=== PATIENT | female | born 1970 | race Caucasian/White ===

== ENCOUNTER 2019-11-05 10:47 | Observation (INO) ==
[2019-11-05] MEDS ORDERED: Ondansetron 4 MG/2 ML VIAL IVP PRN (12:34)
[2019-11-05] MEDS ORDERED: *HR* Dextrose 50 % in Water (Syg) 50 ML SYRINGE IVP PRN (13:35)
[2019-11-05] MEDS ORDERED: Dextrose Gel 15 GM/37.5 ML TUBE PO PRN ×2 (13:35)
[2019-11-05] MEDS ORDERED: D5% in Water 1,000 ML IVC PRN (13:35)
[2019-11-05] MEDS ORDERED: amLODIPine 5 MG TABLET PO SCH (13:45)
[2019-11-05 14:54] LABS: Thyroid Stimulating Hormone 1.553 mcIU/mL (0.340-5.600)
[2019-11-05] MEDS: Insulin LISPRO 300 UNITS/3 ML VIAL SQ SCH (16:21)
[2019-11-05] MEDS: Acetaminophen 325 MG TABLET PO PRN (17:53)
[2019-11-05] MEDS ORDERED: Perflutren Lipid Microsphere 1.3 ML in 0.9 % Sodium Chloride 8.7 ML IVP ONE (18:50)
[2019-11-05] MEDS ORDERED: Ketorolac 15 MG/ML VIAL IVP ONE (20:38)
[2019-11-06 03:48] LABS: Hematocrit 40.2 % (35.3-44.9); Hemoglobin 12.3 g/dL (11.5-15.4); Mean Corpuscular HGB Conc 30.6 g/dL (31.6-35.5); Mean Corpuscular Hemoglobin 26.9 pg (28.0-33.3); Mean Platelet Volume 10.3 fL (9.4-12.4); Platelet Count 210 K/mcL (140-400); Red Blood Count 4.57 M/mcL (3.82-4.97); Red Cell Distribution Width 13.6 % (11.5-14.5); White Blood Count 6.4 K/mcL (4.3-11.1)
[2019-11-06 04:07] LABS: BUN/Creatinine Ratio 16 (6-26); Blood Urea Nitrogen 10 mg/dL (6-20); Calcium 8.3 mg/dL (8.6-10.3); Carbon Dioxide 27 mEq/L (23-29); Chloride 104 mEq/L (98-107); Chol/HDL Ratio 5.6 (0-4.9); Cholesterol 152 mg/dL (< 200); Glucose 134 mg/dL (70-105); HDL Cholesterol 27 mg/dL (40-59); LDL Cholesterol,Calculated 93 mg/dL (0-99); Osmolality,Calculated 287 (280-300); Phosphorous 4.2 mg/dL (2.7-4.5); Potassium 3.7 mEq/L (3.5-5.1); Sodium 138 mEq/L (136-145); Triglycerides 159 mg/dL (< 150); Troponin I < 0.03 ng/mL (< 0.04); eGFR For African Americans > 60 (> 60); eGFR For Non-African Americans > 60 (> 60)
[2019-11-06] MEDS ORDERED: Regadenoson 0.4 MG/5 ML SYRINGE IVP ONE (06:42)
[2019-11-06] MEDS: Insulin LISPRO 300 UNITS/3 ML VIAL SQ SCH ×2 (08:30→11:22)
[2019-11-06] MEDS ORDERED: amLODIPine 5 MG TABLET PO SCH (09:00)
[2019-11-06] MEDS ORDERED: Levothyroxine 25 MCG TABLET PO SCH (09:00)
[2019-11-06] MEDS ORDERED: Aspirin 81 MG TAB.CHEW PO SCH (09:00)
[2019-11-06 09:39] LABS: Estimated Average Glucose 140 mg/dl
[2019-11-06] MEDS: Acetaminophen 325 MG TABLET PO PRN (14:08)
[2019-11-06 14:23] VITALS: BP 144/76
== END 2019-11-06 16:40 | disposition home or self-care (01) ==
LOC: 3BNU → SUATTDRO 12:34
PROVIDERS: ADMIT Internal Medicine; ATTEND Internal Medicine